=== PATIENT | male | born 1990 | race Caucasian/White ===

== ENCOUNTER 2016-09-16 18:47 | Emergency (ER) | payer BC ==
[~2016-09-16] VITALS: Ht 182.9 cm; Wt 99.8 kg
[2016-09-16 19:30] VITALS: BP 151/107
[2016-09-16 21:20] VITALS: BP 151/107
--- NOTE | 2016-09-16 22:20 | Emergency Room Report ---
History of Present Illness General Chief Complaint: Substance Abuse Source: Patient, EMS Present Illness HPI The patient is a 26-year-old male brought in by ambulance for heroin use. The patient was found in a dressing room unresponsive, was given Narcan, and became alert and oriented. He does admit to using heroin today. he denies any other drugs or alcohol. He denies any complaints including nausea, vomiting, fever, chills, headache, dizziness, chest pain, shortness of breath Allergies: Coded Allergies: No Known Allergies (Unverified , 09/16/16) Patient History Past Medical History: see triage record Pertinent Family History: none Social History: Reports: drug use Reviewed Nursing Documentation: PMH: Agreed, PSxH: Agreed Nursing Documentation-PMH Past Medical History: No History, Except For Review of Systems All Other Systems: negative except mentioned in HPI Physical Exam Vital Signs Date Time Temp Pulse Resp B/P Pulse Ox O2 Delivery O2 Flow Rate FiO2 09/16/16 18:46 98.2 100 16 143/98 99 Room Air Sp02 EP Interpretation: reviewed, normal General Appearance: no apparent distress, alert, GCS 15, non-toxic Head: normocephalic, atraumatic Eyes: bilateral eye PERRL, bilateral eye other - constricted ENT: hearing grossly normal, normal pharynx, no angioedema, normal voice, other - dry membranes Neck: full range of motion, supple/symm/no masses Respiratory: chest non-tender, lungs clear, normal breath sounds, speaking full sentences Cardiovascular #1: no edema, no murmur, tachycardia Gastrointestinal: normal bowel sounds, non tender, soft, non-distended, no guarding, no rebound Musculoskeletal: back normal, gait/station normal, normal range of motion, non- tender Neurologic: alert, oriented x3, responsive, motor strength/tone normal, sensory intact, speech normal Psychiatric: judgement/insight normal, memory normal, mood/affect normal, no suicidal/homicidal ideation Skin: normal turgor, diaphoresis Lymphatic: no adenopathy Medical Decision Making PA Attestation Dr. Ybarra is my supervising physician. Patient management was discussed with my supervising physician Diagnostic Impression: Primary Impression: Substance abuse ER Course The patient is a 26-year-old male presenting for heroin use Differential diagnoses considered but not limited to: Drug use, anxiety, alcohol intoxication, psychosis, self-harm ideation Physical exam: The patient is tachycardic and hypertensive. No apparent distress. The patient is alert and oriented HEENT: There are dry mucous membranes. Pupils are constricted. Otherwise unremarkable. Heart: Tachycardic. No MRG. Lungs are clear to auscultation bilaterally. Skin: No rash. Diaphoretic The patient is given time to rest in the emergency department and is monitored. He is discharged and given information regarding help for drug use. He was told to stop using drugs. ER precautions are given Last Vital Signs Date Time Temp Pulse Resp B/P Pulse Ox O2 Delivery O2 Flow Rate FiO2 09/16/16 21:20 97.6 120 18 151/107 96 Room Air Status: improved Disposition: HOME, SELF-CARE Condition: Improved Referrals: NOT CHOSEN IPA/,REFERRING (PCP) Patient Instructions: Opioid Use Disorder Additional Instructions: I discussed my findings with the patient. All questions and concerns have been answered. Treatment and medication compliance have been addressed. I advised the patient that they need to follow up with PMD in 3-5 days. Return to ED if symptoms worsen, new symptoms arise, or if needed for any reason. Patient verbalized understanding of discharge instructions. The patient is given information regarding drug addiction and cessation. NIKKI OWENS September 16, 2016 22:18
[2016-09-16 22:52] VITALS: BP 122/74
== END 2016-09-16 22:57 | disposition home or self-care (01) ==
LOC: EDBD 18:47 → EMR 19:50
DX: F19.10 Other psychoactive substance abuse, uncomplicated (principal); R00.0 Tachycardia, unspecified; I10 Essential (primary) hypertension
CPT/HCPCS: 99284